=== PATIENT | male | born 1980 | race Caucasian/White ===

== ENCOUNTER 2018-07-29 21:45 | Emergency (ER) | payer SELFPAY ==
[~2018-07-29] VITALS: Ht 172.7 cm; Wt 81.6 kg
--- NOTE | ~2018-07-29 | EKG ---
[place], [place] ELECTROCARDIOGRAM REPORT NAME: ONEYDA CEDEÑO UNIT #: [id number] ROOM: DOCTOR: EPIPHANY DRAFT REPORT BIRTHDATE: [birth year] [facility] Test Date: 2018-07-29 Test Time: 23:36:55 Pat Name: ONEYDA CEDEÑO Department: ER Room: 2 Gender: M Cash Register Operator: Lai Moreno : 1980 Requested By: JAMES JIMENEZ Order Number: [id number] Reading MD: Bishop Matson MD Measurements Intervals [place] Rate: 67 P: 30 [place]: 165 QRS: 78 QRSD: 108 T: 48 QT: 425 QTc: 449 Interpretive Statements Sinus rhythm Normal ECG Electronically Signed On 07-30-2018 14:35:27 PST by Bishop Matson MD CM:EKGRPT:ELECTROCARDIOGRAM REPORT [id number] JAMES JIMENEZ MD EPIPHANY DRAFT REPORT JAMES JIMENEZ MD
[~2018-07-29 21:45] MED LIST: AZITHROMYCIN250 MG PO; CARBIDOPA/LEVOD1 TA1 PO; FLONASE 0.05% 121 EA NAS; FOLIC ACID1 MG PO; HYDROXYZINE PAM50 MG PO; MUCINEX600 MG PO; ONDANSETRON4 MG PO; PHENERGAN25 M1 PO; ROBAXIN750 MG PO; SINEMET 25-100M1 TAB PO; THERA1 TAB PO; TRAMADOL HCL50 MG PO; VITAMIN B-11 TAB PO; VIVANCE; Zofran4 MG PO
[2018-07-29] MEDS ORDERED: ADDERALL15 MG PO (21:53)
[2018-07-29] MEDS ORDERED: TRAMADOL HCL50 MG PO (21:54)
[2018-07-29 23:22] LABS: BASO % 0.5 % (0.0-1.0); EOS # 0.2 10*3/uL (0.0-0.4); EOS % 2.3 % (1.0-4.0); HEMATOCRIT 36.8 % (42.0-52.0); HEMOGLOBIN 11.9 g/dl (14.0-18.0); LYMPH # 1.8 10*3/uL (1.3-4.4); LYMPH % 21.1 % (27.0-41.0); MEAN CELL VOLUME 89.8 fl (80.0-94.0); MEAN CORPUSCULAR HGB CONC 32.3 g/dl (33.0-37.0); MEAN PLATELET VOLUME 9.8 fl (9.6-12.3); MONO % 11.3 % (3.0-9.0); NEUT # 5.6 10*3/uL (2.3-7.9); NEUT % 64.5 % (47.0-73.0); PLATELET COUNT AUTOMATED 308 10*3/uL (130-400); RED CELL DISTRI WIDTH 12.4 % (0-14.5); WHITE BLOOD COUNT 8.6 10*3/uL (4.8-10.8)
[2018-07-29 23:38] LABS: ALBUMIN 3.1 gm/dl (3.1-4.5); ALKALINE PHOSPHATASE 79 U/L (45-117); BUN 12 mg/dl (7-24); CHLORIDE 104 mmol/L (98-107); CREATININE 0.64 mg/dL (0.70-1.30); LIPASE 83 U/L (73-393); POTASSIUM 3.5 mmol/L (3.5-5.1); SGOT/AST 30 IU/L (3-35); SGPT/ALT 50 U/L (12-78); SODIUM 136 mmol/L (136-145); TOTAL PROTEIN 6.4 gm/dL (6.4-8.2); TROPONIN I < 0.015 ng/ml (<0.045)
[2018-07-29 23:43] LABS: THYROID STIM HORMONE (HS) 0.734 uIU/ml (0.358-4.75)
[2018-07-30] MEDS ORDERED: ULTRAM50 MG PO (01:27)
== END 2018-07-30 01:50 | disposition home or self-care (01) ==
LOC: ED 21:45
PROVIDERS: Emergency Medicine Emergency Medical Services
DX: S39.012A Strain of muscle, fascia and tendon of lower back, initial encounter (principal); M19.90 Unspecified osteoarthritis, unspecified site; F17.200 Nicotine dependence, unspecified, uncomplicated; Z88.0 Allergy status to penicillin; X58.XXXA Exposure to other specified factors, initial encounter; Y93.89 Activity, other specified; Y92.89 Other specified places as the place of occurrence of the external cause; Y99.8 Other external cause status

== ENCOUNTER 2020-12-20 16:04 | Emergency (ER) | payer OTHER ==
[~2020-12-20] VITALS: Wt 90.7 kg
[~2020-12-20 16:04] MED LIST changes: +ADDERALL15 MG PO; +ULTRAM50 MG PO
[2020-12-20] MEDS ORDERED: LACRILUBE S.O.3.5 GM OPH (17:21)
[2020-12-20] MEDS ORDERED: VALTREX1000 MG PO (17:21)
[2020-12-20] MEDS ORDERED: ARTIFICIAL TEAR1514 OS (17:21)
[2020-12-20] MEDS ORDERED: PREDNISONE20 M1 PO (17:21)
== END 2020-12-20 16:38 | disposition home or self-care (01) ==
LOC: ED 16:04
DX: G51.0 Bell's palsy (principal); Z88.0 Allergy status to penicillin; Z88.8 Allergy status to other drugs, medicaments and biological substances; Z79.899 Other long term (current) drug therapy; Z98.890 Other specified postprocedural states

== ENCOUNTER 2021-07-12 23:53 | Emergency (ER) | payer OTHER ==
[~2021-07-12] VITALS: Ht 172.7 cm; Wt 90.7 kg
[~2021-07-12 23:53] MED LIST changes: +ARTIFICIAL TEAR1514 OS; +LACRILUBE S.O.3.5 GM OPH; +PREDNISONE20 M1 PO; +VALTREX1000 MG PO
[2021-07-13] MEDS ORDERED: CLINDAMYCIN HC300 MG PO (00:25)
== END 2021-07-13 00:41 | disposition home or self-care (01) ==
LOC: ED 23:53
DX: K04.7 Periapical abscess without sinus (principal); F17.200 Nicotine dependence, unspecified, uncomplicated; Z88.0 Allergy status to penicillin; Z79.899 Other long term (current) drug therapy

== ENCOUNTER 2022-05-29 23:16 | Emergency (ER) | payer OTHER ==
[~2022-05-29] VITALS: Ht 172.7 cm; Wt 81.6 kg
[~2022-05-29 23:16] MED LIST changes: +CLINDAMYCIN HC300 MG PO
[2022-05-30 00:23] LABS: BASO # 0.1 10*3/uL (0.0-0.1); BASO % 0.7 % (0.0-1.0); EOS # 0.6 10*3/uL (0.0-0.4); EOS % 4.9 % (1.0-4.0); HEMATOCRIT 40.4 % (42.0-52.0); LYMPH # 2.3 10*3/uL (1.3-4.4); LYMPH % 20.5 % (27.0-41.0); MEAN CORPUSCULAR HGB 28.3 pg (27.0-31.0); MEAN CORPUSCULAR HGB CONC 31.4 g/dl (33.0-37.0); MEAN PLATELET VOLUME 9.7 fl (9.6-12.3); MONO # 0.8 10*3/uL (0.1-1.0); MONO % 6.8 % (3.0-9.0); NEUT # 7.5 10*3/uL (2.3-7.9); NEUT % 66.7 % (47.0-73.0); PLATELET COUNT AUTOMATED 350 10*3/uL (130-400); RED BLOOD COUNT 4.49 10*6/uL (4.50-5.90); RED CELL DISTRI WIDTH 12.7 % (0-14.5); WHITE BLOOD COUNT 11.2 10*3/uL (4.8-10.8)
[2022-05-30 00:41] LABS: ALKALINE PHOSPHATASE 89 U/L (45-117); BUN 16 mg/dl (7-24); CHLORIDE 107 mmol/L (98-107); SGOT/AST 19 IU/L (3-35); SGPT/ALT 29 U/L (12-78); SODIUM 139 mmol/L (136-145); TOTAL PROTEIN 6.8 gm/dL (6.4-8.2)
[2022-05-30 00:47] LABS: ACETAMINOPHEN (TYLENOL) < 5.0 ug/ml (10-30); ETHYL ALCOHOL < 3.0 mg/dl (<3)
[2022-05-30 00:55] LABS: BILIRUBIN Negative (Negative); BLOOD Negative (Negative); CLARITY Clear (Clear); COLOR Yellow (Yellow); GLUCOSE Negative (Negative); KETONE Trace (Negative); LEUKO ESTERASE Negative (Negative); NITRITE Negative (Negative); PH 5.5 (4.5-8.0); SPECIFIC GRAVITY >= 1.030 (1.001-1.030)
[2022-05-30 01:04] LABS: URINE AMPHETAMINES > 1000 (1000ng/ml); URINE BARBITURATES < 200 (200ng/ml); URINE BENZODIAZEPINES > 200 (200ng/ml); URINE CANNABINOIDS (THC) < 50 (50ng/ml); URINE COCAINE > 300 (300ng/ml); URINE METHADONE < 300 (300ng/ml); URINE OPIATES > 300 (300ng/ml)
[2022-05-30 01:07] LABS: URINE PHENCYCLIDINE < 25 (25ng/ml)
== END 2022-05-30 05:57 ==
LOC: ED 23:16
PROVIDERS: Emergency Medicine
DX: T40.412A Poisoning by fentanyl or fentanyl analogs, intentional self-harm, initial encounter (principal); T42.4X2A Poisoning by benzodiazepines, intentional self-harm, initial encounter; F19.10 Other psychoactive substance abuse, uncomplicated; F17.200 Nicotine dependence, unspecified, uncomplicated; Z88.0 Allergy status to penicillin; Z79.899 Other long term (current) drug therapy; Y92.89 Other specified places as the place of occurrence of the external cause

== ENCOUNTER 2023-01-12 01:38 | Emergency (ER) | payer OTHER ==
[~2023-01-12] VITALS: Ht 172.7 cm; Wt 81.6 kg
[2023-01-12] MEDS ORDERED: PREDNISONE20 M1 PO (02:51)
[2023-01-12] MEDS ORDERED: CLINDAMYCIN HC300 MG PO (02:51)
== END 2023-01-12 03:00 | disposition home or self-care (01) ==
LOC: ED 01:38
DX: J20.8 Acute bronchitis due to other specified organisms (principal); K02.9 Dental caries, unspecified; Z88.0 Allergy status to penicillin; Z88.8 Allergy status to other drugs, medicaments and biological substances; Z98.890 Other specified postprocedural states

== ENCOUNTER 2023-04-05 15:36 | Emergency (ER) | payer OTHER ==
[~2023-04-05] VITALS: Ht 172.7 cm; Wt 81.6 kg
[2023-04-05] MEDS ORDERED: CLINDAMYCIN HC300 MG PO (16:15)
== END 2023-04-05 16:32 | disposition home or self-care (01) ==
LOC: ED 15:36
DX: J32.9 Chronic sinusitis, unspecified (principal); Z88.0 Allergy status to penicillin; Z88.8 Allergy status to other drugs, medicaments and biological substances; Z98.890 Other specified postprocedural states

== ENCOUNTER 2023-12-02 13:04 | Emergency (ER) | payer OTHER ==
[~2023-12-02] VITALS: Ht 172.7 cm; Wt 81.6 kg
[2023-12-02] MEDS ORDERED: Acetaminophen/Hydrocodone 5 MG/325 MG TABLET PO ONE (13:40)
[2023-12-02] MEDS ORDERED: CYCLOBENZAPRINE10 MG PO (15:32)
== END 2023-12-02 15:35 | disposition home or self-care (01) ==
LOC: ED 13:04
DX: S46.911A Strain of unspecified muscle, fascia and tendon at shoulder and upper arm level, right arm, initial encounter (principal); M19.90 Unspecified osteoarthritis, unspecified site; I10 Essential (primary) hypertension; F14.10 Cocaine abuse, uncomplicated; F17.200 Nicotine dependence, unspecified, uncomplicated; F11.10 Opioid abuse, uncomplicated; Z88.0 Allergy status to penicillin; Z98.890 Other specified postprocedural states; X58.XXXA Exposure to other specified factors, initial encounter; Y93.89 Activity, other specified; Y92.89 Other specified places as the place of occurrence of the external cause; Y99.8 Other external cause status

== ENCOUNTER 2024-07-02 17:26 | Emergency (ER) | payer OTHER ==
[~2024-07-02] VITALS: Ht 172.7 cm; Wt 81.6 kg
[~2024-07-02 17:26] MED LIST changes: +CYCLOBENZAPRINE10 MG PO
[2024-07-02] MEDS ORDERED: CLINDAMYCIN HC300 MG PO ×2 (17:48→18:07)
[2024-07-02] MEDS ORDERED: Motrin,Rufen800 MG PO ×2 (17:49→18:07)
== END 2024-07-02 17:45 | disposition home or self-care (01) ==
LOC: ED 17:26
DX: K04.7 Periapical abscess without sinus (principal); E78.1 Pure hyperglyceridemia; M19.90 Unspecified osteoarthritis, unspecified site; F98.8 Other specified behavioral and emotional disorders with onset usually occurring in childhood and adolescence; Z88.0 Allergy status to penicillin; Z87.891 Personal history of nicotine dependence

== ENCOUNTER 2024-10-13 15:24 | Emergency (ER) | payer OTHER ==
[~2024-10-13] VITALS: Wt 81.6 kg
[~2024-10-13 15:24] MED LIST changes: +Motrin,Rufen800 MG PO
[2024-10-13] MEDS ORDERED: methylPREDNISolone sod succ 125 MG VIAL IM ONE (16:10)
[2024-10-13] MEDS ORDERED: Ketorolac Tromethamine 30 MG/ML VIAL IM ONE (16:10)
[2024-10-13] MEDS ORDERED: NAPROSYN500 MG PO (16:48)
[2024-10-13] MEDS ORDERED: CYCLOBENZAPRINE5 M3 PO (16:48)
== END 2024-10-13 16:54 | disposition home or self-care (01) ==
LOC: ED 15:24
DX: S39.012A Strain of muscle, fascia and tendon of lower back, initial encounter (principal); I10 Essential (primary) hypertension; Z88.0 Allergy status to penicillin; Z98.890 Other specified postprocedural states; X58.XXXA Exposure to other specified factors, initial encounter; Y93.89 Activity, other specified; Y92.009 Unspecified place in unspecified non-institutional (private) residence as the place of occurrence of the external cause; Y99.8 Other external cause status

== ENCOUNTER 2025-06-01 20:03 | Emergency (ER) | payer OTHER ==
[~2025-06-01] VITALS: Ht 172.7 cm; Wt 81.6 kg
[~2025-06-01 20:03] MED LIST changes: +CYCLOBENZAPRINE5 M3 PO; +NAPROSYN500 MG PO
[2025-06-01] MEDS ORDERED: VENT7GM INH (21:15)
[2025-06-01] MEDS ORDERED: VIBRAMYCIN100 MG PO (21:15)
[2025-06-01] MEDS ORDERED: MEDROL DOSEPAK4 MG PO (21:15)
== END 2025-06-01 21:24 | disposition home or self-care (01) ==
LOC: ED 20:03
DX: J98.8 Other specified respiratory disorders (principal); Z88.0 Allergy status to penicillin; Z79.899 Other long term (current) drug therapy

== ENCOUNTER 2025-09-03 12:23 | Emergency (ER) | payer OTHER ==
[~2025-09-03] VITALS: Ht 172.7 cm; Wt 81.6 kg
[~2025-09-03 12:23] MED LIST changes: +MEDROL DOSEPAK4 MG PO; +VENT7GM INH; +VIBRAMYCIN100 MG PO
[2025-09-03] MEDS ORDERED: CLINDAMYCIN HC300 MG PO (14:10)
[2025-09-03] MEDS ORDERED: Ondansetron4 MG PO (14:10)
[2025-09-03] MEDS ORDERED: METHOCARBAMOL750 M1 PO (14:10)
[2025-09-03] MEDS ORDERED: PREDNISONE20 M1 PO (14:10)
== END 2025-09-03 14:26 | disposition home or self-care (01) ==
LOC: ED 12:23
DX: S06.0X0A Concussion without loss of consciousness, initial encounter (principal); S16.1XXA Strain of muscle, fascia and tendon at neck level, initial encounter; K02.9 Dental caries, unspecified; I10 Essential (primary) hypertension; Z88.0 Allergy status to penicillin; V49.9XXA Car occupant (driver) (passenger) injured in unspecified traffic accident, initial encounter; Y93.89 Activity, other specified; Y92.410 Unspecified street and highway as the place of occurrence of the external cause; Y99.8 Other external cause status